=== PATIENT | female | born 1965 | race Caucasian/White ===

== ENCOUNTER → 2021-01-20 | Outpatient (CLI) | payer BC ==
--- NOTE | 2021-01-20 10:54 | XR ---
EXAMINATION TYPE: XR chest 2V DATE OF EXAM: 01/20/2021 COMPARISON: 03/11/2014 HISTORY: 55-year-old female shortness of breath, tobacco abuse TECHNIQUE: Frontal and lateral views FINDINGS: The cardiomediastinal silhouette, aorta, and pulmonary vasculature are within normal limits. Hazy den sities in the lower lungs related to overlying soft tissue. Otherwise, lungs and pleural spaces are c lear. IMPRESSION: No acute cardiopulmonary process.
== END | disposition home or self-care (01) ==
LOC: RADXRMAIN 10:30
PROVIDERS: ATTEND Family Medicine
DX: R06.02 Shortness of breath (principal); Z72.0 Tobacco use
CPT/HCPCS: 71046

== ENCOUNTER → 2021-02-13 | Outpatient (CLI) | payer BC ==
--- NOTE | 2021-02-13 10:48 | NM ---
EXAMINATION TYPE: NM stress cardiolite complete DATE OF EXAM: 02/13/2021 COMPARISON: NONE HISTORY: Difficulty in breathing heart palpitations TECHNIQUE: After the intravenous administration of 9.5 mCi Tc 99m Sestamibi - Cardiolite resting SPE CT images acquired 45 minutes post injection. At peak stress 25.3 mCi Tc 99m Sestamibi - Stress images obtained 15 minutes post injection The patient was stressed on a treadmill. The patient achieved greater than 85% of predicted maximum h eart rate. FINDINGS: There is diminished radiotracer accumulation on both rest and stress images along the anter ior and anterior septal tran. No reversible stress defects on Spect images. There is minimal hypokinesia of the anterior septal wall on wall motion images. Remaining wall motion is normal. Ejection fraction is calculated to be 75 %. IMPRESSION: 1. 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 2. No reversible perfusion defects are evident. 3. Normal ejection fraction
--- NOTE | 2021-02-13 17:28 | P.STRESS ---
- Stress Test Note Stress Test Results/Findings: Exam Performed: NM stress cardiolite complete Exam Date: 02/13/21 Reason for Exam: SHORTNESS OF BREATH, FATIGUE Height: 5 ft 8 in Weight: 76.4 kg Protocol: CARDIOLITE SARBJIT Stage: 2 Duration of Exercise: 6:30 MINUTES Resting Heart Rate: 75 Resting Blood Pressure: 128/78 Maximum Achieved Heart Rate: 153 Maximum Achieved Blood Pressure: 177/72 85% PMHR: 139 100% PMHR: 163 METS: 7.9 Technologist Comment: Stress Test Results/Findings: Patient exercised on a Sarbjit protocol for 6 minutes 30 seconds achieving a peak heart rate of 153 beats a minute No ECG evidence for ischemia No arrhythmias Normal heart rate and blood pressure response to exercise
== END | disposition home or self-care (01) ==
LOC: RADNMMAIN 08:13
PROVIDERS: ATTEND Physician Assistant Medical
DX: R00.2 Palpitations (principal); R06.02 Shortness of breath
CPT/HCPCS: 93017; 78452; A9500